=== PATIENT | male | born 1970 | race Asian ===

== ENCOUNTER → 2019-11-05 10:04 | Outpatient (CLI) | payer OTHER, SELFPAY ==
[2019-11-06 09:27] LABS: COVID19 Sendout Not Detected (Not Detect)
== END ==
PROVIDERS: Visit Provider Physician Assistant
DX: Z11.59 Encounter for screening for other viral diseases (principal)
CPT/HCPCS: 87635

== ENCOUNTER → 2019-11-21 15:17 | Outpatient (CLI) | payer OTHER, SELFPAY ==
--- NOTE | 2019-11-21 | DI.MRI.S_ITS ---
PROCEDURE: MR TMJ WO CON INDICATIONS: Jaw pain TECHNIQUE: Axial T1 spin echo, coronal and sagittal PD fast spin echo through the temporomandibular joints, in both the closed- and open-mouth positions. COMPARISON: None. FINDINGS: Image quality: Excellent. Right: Joint is normally aligned on closed and open-mouth positioning. Articular disk demonstrates normal location and morphology in closed and open-mouth positions. No joint effusion. No bony erosions or osteophytes. Left: Joint is normally aligned on closed and open-mouth positioning. Articular disk demonstrates normal location and morphology in closed and open-mouth positions. No joint effusion. No bony erosions or osteophytes. IMPRESSION: Normal examination. Dictated by: Samina Porter MD, PhD on 11/21/2019 at 16:53 Approved by: Samina Porter MD, PhD on 11/21/2019 at 16:56
== END ==
PROVIDERS: Referring Provider Family Medicine Sleep Medicine; Visit Provider Family Medicine Sleep Medicine
DX: R68.84 Jaw pain (principal)
CPT/HCPCS: 70336

== ENCOUNTER 2020-09-10 13:00 | Outpatient (RCR) | payer OTHER, SELFPAY ==
--- NOTE | 2020-09-02 10:17 | PT.OIE ---
Current Diagnoses Benign paroxysmal vertigo, right ear (09/02/20) Past Medical History (Last Updated 10/02/19 @ 18:12 by CATHY Leach) Diverticulitis large intestine Diverticulosis Excessive daytime sleepiness Obstructive sleep apnea Visit Care Team Role Provider Type Deiudonne Ascencio DO Primary Care Provider Non-Staff Specialty: Family Practice Address: [address] [place] [address], [id number] Email: George Rosa MD Attending Provider Physician Referring Provider Specialty: Ear, Nose, Throat Address: [address] [place] [address], [id number] Email: [email or web address] Physical Therapy Initial Evaluation PT-OP-A Visit Information Start: 08/19/20 12:40 Freq: Status: Active Protocol: Document 09/02/20 08:20 MB (Rec: 09/02/20 08:44 MB [id number]) Out-Patient Physical Therapy Visit Information Visit Information Visit Type Initial Evaluation Visit Note Visit Start Time 08:20 Visit Stop Time 09:00 Total Visit Minutes 40 Visit Number 1 PT-OP-B Current Condition Start: 09/02/20 08:20 Freq: Status: Active Protocol: Document 09/02/20 08:20 MB (Rec: 09/02/20 08:44 MB [id number]) Current Condition History of Current Condition Onset Date Since 2006 Current Complaints Vertigo, tinnitus History of Current Condition Pt reports that his dad had tinnitus. Pt started getting tinnitus in his mid 40s. The dizziness also started around then. He has always been sensitive to being in cars. 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 He wears a entrance guard. He does tend to grind and feels the TMJ is due stress. He wears hearing aides . He has 30% hearing left on the right and poor normal on the left. He is wearing a BiPap machine with nasal pillow. Pt states that the machine has really helped him with apnea and migraines. He can sleep for 6 hours only for his back. He has some degenerative lumbar issues and sciatica. His right leg falls asleep if he stands more than 15 minutes. He has high BP that is well-managed. Pt has trouble with walking in the dark. When he wakes up, he has reach for the wall. In 2012, pt went to get his wisdom teeth removed and was intubated and he has had some trouble swallowing since then. He has to drink a lot of water before he can swallow well. Pt reports: occ numbness and tingling right hand and leg, ear pressure in the right, hearing change right, sinus and allergy issues, TMJ right, tinnitus, trouble swallowing, right leg weakness, headaches right head and movement with most recent headache 2 days ago, chiropractor treatment 2 months ago for back and neck and pt reports worse dizziness after neck popped. Pt denies: vision changes, history of concussion and whiplash, performance of sit- ups, anemia, recent overhead lifting, B12 deficiency, eye pressure changes. Pt takes allergy medication everyday. He is taking Benadryl. He is getting cramps in his legs when sleeping. Treatment Goals Patient/Caregiver Goals To improve symptoms PT-OP-C Subjective Start: 08/19/20 12:40 Freq: Status: Active Protocol: Document 09/02/20 08:20 MB (Rec: 09/02/20 08:44 MB [id number]) OP-PT Subjective Patient Comments Patient Comments See history of current condition PT-OP-H Neuro Start: 08/19/20 12:40 Freq: Status: Active Protocol: Document 09/02/20 08:20 MB (Rec: 09/02/20 10:16 MB [id number]) Coordination Evaluation Upper Extremity Tests Left Pronation/Supination Test Normal Performance Right Pronation/Supination Test Normal Performance Comments Coordination Comments Toe tap over opposite foot equal and WNLs B B finger to PT's finger and pt 's nose normal PT-OP-J Posture/Palpation/Skin Start: 08/19/20 12:40 Freq: Status: Active Protocol: Document 09/02/20 08:20 MB (Rec: 09/02/20 10:16 MB [id number]) Posture Evaluation Comments Posture Comments Forward head and rounded shoulders, observed during interview with pt sitting today PT-OP-K Range of Motion Start: 08/19/20 12:40 Freq: Status: Active Protocol: Document 09/02/20 08:20 MB (Rec: 09/02/20 10:16 MB [id number]) Shoulder Goniometric Range of Motion Shoulder Bilateral Shoulder ROM WFL Yes Testing Position Sitting PT-OP-M Strength Start: 08/19/20 12:40 Freq: Status: Active Protocol: Document 09/02/20 08:20 MB (Rec: 09/02/20 10:16 MB [id number]) Shoulder Strength Shoulder Manual Muscle Testing Left Abduction (C5) 5 Normal External Rotation 5 Normal Internal Rotation 5 Normal Right Abduction (C5) 5 Normal External Rotation 5 Normal Internal Rotation 5 Normal Wrist Strength Wrist Manual Muscle Testing Left Extension (C6) 5 Normal Right Extension (C6) 5 Normal PT-OP-O Vestibular Start: 08/19/20 12:40 Freq: Status: Active Protocol: Document 09/02/20 08:20 MB (Rec: 09/02/20 10:16 MB [id number]) Vestibular Assessment Visual Testing Smooth Pursuits Horizontal Normal, pt reports some dizziness Smooth Pursuits Vertical As above Saccades Horizontal Normal Saccades Vertical Normal Gaze Evoked Nystagmus With Fixation Negative Spontaneous Nystagmus Negative Positional Testing [place]-Hallpike Positive Right,Upbeating,< 60 Seconds Comments Vestibular Comments PT cannot discern pupilary changes with pen light d/t darkness of irises compared to pupils (similar) PT-OP-Q Treatments Start: 08/19/20 12:40 Freq: Status: Active Protocol: Document 09/02/20 08:20 MB (Rec: 09/02/20 10:01 MB [id number]) Self-Care/Home Management Treatment Education Other Education Education and handouts about BPPV, keeping neck loose, headache self-care including cervical support under pillow and better hydration (pt is currently drinking 2 cups of coffee and 32 oz of non- caffeinated fluid), ed to stop any chiropractor appointments at this time Canalithic Repositioning BPPV Treatment Other Comments Doni-Hallpike right positive for nystagmus 40 seconds and dizziness that fits posterior canalithiasis and treated with modified Leilani. Re-tested and nystagmus and symptoms are better, yet both still present , and re-treated again. Check other canals in the future if symptoms sounding like positional vertigo persists PT-OP-T Assessment and Plan Start: 08/19/20 12:40 Freq: Status: Active Protocol: Document 09/02/20 08:20 MB (Rec: 09/02/20 10:16 MB [id number]) Physical Therapy Assessment Rehab Potential Rehabilitation Potential Fair Evaluation Complexity Number of Personal Factors/Comorbidities 1-2 Number of Body Systems Impaired 3 Clinical Presentation at Evaluation Evolving Impairments Impairments Activity Tolerance,Balance, Pain,Posture,ROM,Soft Tissue Mobility,Strength,Vestibular Other Impairments Personal factors include he sits at a desk for work and has lumbar and sciatic co- morbidities that impede standing and better posture. Body systems affected include musculoskeletal, neuromuscular , vestibular and respiratory ( sleep apnea). His clinical presentation is evolving. Other Concerns Fall Risk Yes Goals 2 Construction Laborer Goal (LTG) Pt will perform progressive HEP with I including postural, VOR, breathing, self-massage, balance and alignment exercises to improve balance, posture and dizziness by . LTG Duration 8 weeks 1 Impairment DHI 54/100 Assisted Goal (LTG) Pt will present with an improved DHI score to no more than 25/100 to reflect less dizziness and trouble with functional mobility d/t dizziness by 11/03/20. LTG Duration 8 weeks Assessment Summary Assessment Pt is a 49 y/o male presenting with long history of tinnitus , dizziness, aural fullness, headaches and hearing loss. Tinnitus, aural fullness and hearing loss are predominately in the right ear. He has never been given a dx of Meniere's and hearing changes are thought to be related to ear bud in right ear for his work in [employer] that caused tinnitus for many people with the same job. Aural fullness and positional dizziness do not typically occur with this type of problem and so PT favors unstable vestibular lesion like Meniere's to still be in clinical work-up. He does present with right posterior canalithiasis BPPV today and so PT treats this. He has a history of lumbar changes, right sciatica that does not allow him to stand as much as he would like at work , headaches, TMD and ear pain on the right and use of BiPap. Pt has cervicogenic, vestibular, stress, breathing and postural contributions to his overall presentation and PT will address these contributors during PT course. He will benefit from ongoing VOR assessment, assessment of BPPV recurrence and treatment as needed, postural, relaxation and other self-care treatment and training. Physical Therapy Plan Frequency and Duration Frequency of Treatment 2x/Week Duration of Treatment 8 weeks Plan of Care Start Date 09/02/20 Plan of Care End Date 11/03/20 Therapeutic Interventions Therapeutic Interventions Balance Training,Canalithic Repositioning,Gait Training, Home Exercise Program,Joint Mobilizations,Manual Therapy, Neuromuscular Re-education, Patient/Caregiver Education, Self-Care/Home Management,Soft Tissue Mobilization,Taping, Therapeutic Activities, Therapeutic Exercises, Vestibular Rehabilitation Modalities Cold Pack/Ice Massage,Hot Packs Next Visit Focus/Plan Next Note Type Treatment Note Next Visit Plan Reassess BPPV, consider checking VOR and/or start postural training with racquet ball massage, chin tuck and scapular retraction, pelvic realignment exercises, provide sleeping hygiene education, [place] in future treatments
--- NOTE | 2020-09-02 10:17 | PT.OPPOC ---
Physical, Occupational & Speech Therapy At [facility] Current Diagnoses Benign paroxysmal vertigo, right ear (09/02/20) Visit Care Team Role Provider Type Dieudonne Ascencio DO Primary Care Provider Non-Staff Specialty: Family Practice Address: [address] [place] [address], [id number] Email: George Rosa MD Attending Provider Physician Referring Provider Specialty: Ear, Nose, Throat Address: [address] [place] [address], [id number] Email: [email or web address] Plan Of Care PT-OP-T Assessment and Plan Start: 08/19/20 12:40 Freq: Status: Active Protocol: Document 09/02/20 08:20 MB (Rec: 09/02/20 10:16 MB [id number]) Physical Therapy Assessment Rehab Potential Rehabilitation Potential Fair Evaluation Complexity Number of Personal Factors/Comorbidities 1-2 Number of Body Systems Impaired 3 Clinical Presentation at Evaluation Evolving Impairments Impairments Activity Tolerance,Balance, Pain,Posture,ROM,Soft Tissue Mobility,Strength,Vestibular Other Impairments Personal factors include he sits at a desk for work and has lumbar and sciatic co- morbidities that impede standing and better posture. Body systems affected include musculoskeletal, neuromuscular , vestibular and respiratory ( sleep apnea). His clinical presentation is evolving. Other Concerns Fall Risk Yes Goals 2 Fpc Goal (LTG) Pt will perform progressive HEP with I including postural, VOR, breathing, self-massage, balance and alignment exercises to improve balance, posture and dizziness by . LTG Duration 8 weeks 1 Impairment DHI 54/100 Fpc Goal (LTG) Pt will present with an improved DHI score to no more than 25/100 to reflect less dizziness and trouble with functional mobility d/t dizziness by 11/03/20. LTG Duration 8 weeks Assessment Summary Assessment Pt is a 49 y/o male presenting with long history of tinnitus , dizziness, aural fullness, headaches and hearing loss. Tinnitus, aural fullness and hearing loss are predominately in the right ear. He has never been given a dx of Meniere's and hearing changes are thought to be related to ear bud in right ear for his work in [employer] that caused tinnitus for many people with the same job. Aural fullness and positional dizziness do not typically occur with this type of problem and so PT favors unstable vestibular lesion like Meniere's to still be in clinical work-up. He does present with right posterior canalithiasis BPPV today and so PT treats this. He has a history of lumbar changes, right sciatica that does not allow him to stand as much as he would like at work , headaches, TMD and ear pain on the right and use of BiPap. Pt has cervicogenic, vestibular, stress, breathing and postural contributions to his overall presentation and PT will address these contributors during PT course. He will benefit from ongoing VOR assessment, assessment of BPPV recurrence and treatment as needed, postural, relaxation and other self-care treatment and training. Physical Therapy Plan Frequency and Duration Frequency of Treatment 2x/Week Duration of Treatment 8 weeks Plan of Care Start Date 09/02/20 Plan of Care End Date 11/03/20 Therapeutic Interventions Therapeutic Interventions Balance Training,Canalithic Repositioning,Gait Training, Home Exercise Program,Joint Mobilizations,Manual Therapy, Neuromuscular Re-education, Patient/Caregiver Education, Self-Care/Home Management,Soft Tissue Mobilization,Taping, Therapeutic Activities, Therapeutic Exercises, Vestibular Rehabilitation Modalities Cold Pack/Ice Massage,Hot Packs Next Visit Focus/Plan Next Note Type Treatment Note Next Visit Plan Reassess BPPV, consider checking VOR and/or start postural training with racquet ball massage, chin tuck and scapular retraction, pelvic realignment exercises, provide sleeping hygiene education, [place] in future treatments Plan of Care Dates Plan of Care Start Date 09/02/20 Plan of Care End Date 11/03/20 Electronically Signed by: Lisbeth Christy, PT 09/02/20 1017 Please Sign and Return: I have reviewed this Plan of Care and certify that the skilled therapy services above are required to meet the patient?s needs. Physician Signature Date Printed Name and Credentials Clinical Instructor Signature Printed Name and Credentials
--- NOTE | 2020-09-07 13:45 | PT.OTN ---
Current Diagnoses Benign paroxysmal vertigo, right ear (09/07/20) Physical Therapy Treatment Note PT-OP-A Visit Information Start: 08/19/20 12:40 Freq: Status: Active Protocol: Document 09/07/20 13:02 MB (Rec: 09/07/20 13:44 MB [id number]) Out-Patient Physical Therapy Visit Information Visit Information Visit Type Treatment Note Visit Note Visit Start Time 13:02 Visit Stop Time 13:40 Total Visit Minutes 38 Visit Number 2 PT-OP-B Current Condition Start: 09/02/20 08:20 Freq: Status: Active Protocol: Document 09/02/20 08:20 MB (Rec: 09/02/20 08:44 MB [id number]) Current Condition History of Current Condition Onset Date Since 2006 Current Complaints Vertigo, tinnitus History of Current Condition Pt reports that his dad had tinnitus. Pt started getting tinnitus in his mid 40s. The dizziness also started around then. He has always been sensitive to being in cars. 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 He wears a night time babysitter. He does tend to grind and feels the TMJ is due stress. He wears hearing aides . He has 30% hearing left on the right and poor normal on the left. He is wearing a BiPap machine with nasal pillow. Pt states that the machine has really helped him with apnea and migraines. He can sleep for 6 hours only for his back. He has some degenerative lumbar issues and sciatica. His right leg falls asleep if he stands more than 15 minutes. He has high BP that is well-managed. Pt has trouble with walking in the dark. When he wakes up, he has reach for the wall. In 2012, pt went to get his wisdom teeth removed and was intubated and he has had some trouble swallowing since then. He has to drink a lot of water before he can swallow well. Pt reports: occ numbness and tingling right hand and leg, ear pressure in the right, hearing change right, sinus and allergy issues, TMJ right, tinnitus, trouble swallowing, right leg weakness, headaches right head and movement with most recent headache 2 days ago, chiropractor treatment 2 months ago for back and neck and pt reports worse dizziness after neck popped. Pt denies: vision changes, history of concussion and whiplash, performance of sit- ups, anemia, recent overhead lifting, B12 deficiency, eye pressure changes. Pt takes allergy medication everyday. He is taking Benadryl. He is getting cramps in his legs when sleeping. Treatment Goals Patient/Caregiver Goals To improve symptoms PT-OP-C Subjective Start: 08/19/20 12:40 Freq: Status: Active Protocol: Document 09/07/20 13:02 MB (Rec: 09/07/20 13:44 MB [id number]) OP-PT Subjective Patient Comments Patient Comments Pt states that his dizziness is better. He is getting some light-headedness. PT-OP-H Neuro Start: 08/19/20 12:40 Freq: Status: Active Protocol: Document 09/02/20 08:20 MB (Rec: 09/02/20 10:16 MB [id number]) Coordination Evaluation Upper Extremity Tests Left Pronation/Supination Test Normal Performance Right Pronation/Supination Test Normal Performance Comments Coordination Comments Toe tap over opposite foot equal and WNLs B B finger to PT's finger and pt 's nose normal PT-OP-J Posture/Palpation/Skin Start: 08/19/20 12:40 Freq: Status: Active Protocol: Document 09/02/20 08:20 MB (Rec: 09/02/20 10:16 MB [id number]) Posture Evaluation Comments Posture Comments Forward head and rounded shoulders, observed during interview with pt sitting today PT-OP-K Range of Motion Start: 08/19/20 12:40 Freq: Status: Active Protocol: Document 09/02/20 08:20 MB (Rec: 09/02/20 10:16 MB [id number]) Shoulder Goniometric Range of Motion Shoulder Bilateral Shoulder ROM WFL Yes Testing Position Sitting PT-OP-M Strength Start: 08/19/20 12:40 Freq: Status: Active Protocol: Document 09/02/20 08:20 MB (Rec: 09/02/20 10:16 MB [id number]) Shoulder Strength Shoulder Manual Muscle Testing Left Abduction (C5) 5 Normal External Rotation 5 Normal Internal Rotation 5 Normal Right Abduction (C5) 5 Normal External Rotation 5 Normal Internal Rotation 5 Normal Wrist Strength Wrist Manual Muscle Testing Left Extension (C6) 5 Normal Right Extension (C6) 5 Normal PT-OP-O Vestibular Start: 08/19/20 12:40 Freq: Status: Active Protocol: Document 09/02/20 08:20 MB (Rec: 09/02/20 10:16 MB [id number]) Vestibular Assessment Visual Testing Smooth Pursuits Horizontal Normal, pt reports some dizziness Smooth Pursuits Vertical As above Saccades Horizontal Normal Saccades Vertical Normal Gaze Evoked Nystagmus With Fixation Negative Spontaneous Nystagmus Negative Positional Testing Lane-Hallpike Positive Right,Upbeating,< 60 Seconds Comments Vestibular Comments PT cannot discern pupilary changes with pen light d/t darkness of irises compared to pupils (similar) PT-OP-Q Treatments Start: 08/19/20 12:40 Freq: Status: Active Protocol: Document 09/07/20 13:02 MB (Rec: 09/07/20 13:44 MB [id number]) Therapeutic Exercises Standing Exercises Racquet ball work Standing Exercise Name Intrascapular STM and MWM infraspinatus B Side bilateral Comments TrP pressure with ball, cervical rotation, shoulder ER and IR Self-Care/Home Management Treatment Education Other Education Desk ergonomics handout, use of pillow to support back and arms Canalithic Repositioning BPPV Treatment Other Comments Lane-Hallpike right is positive for nystagmus that is delayed and lasts 20 sec today, milder than last week. Re- treated x2 with modified Leilani today (PT and pt only, no tech available). Pt does have reversal of nystagmus with moving to sitting. Nystagmus in Doni-Hallpike does follow posterior canalithiasis presentation PT-OP-T Assessment and Plan Start: 08/19/20 12:40 Freq: Status: Active Protocol: Document 09/07/20 13:02 MB (Rec: 09/07/20 13:44 MB [id number]) Physical Therapy Assessment Rehab Potential Rehabilitation Potential Fair Evaluation Complexity Number of Personal Factors/Comorbidities 1-2 Number of Body Systems Impaired 3 Clinical Presentation at Evaluation Evolving Impairments Impairments Activity Tolerance,Balance, Pain,Posture,ROM,Soft Tissue Mobility,Strength,Vestibular Other Impairments Personal factors include he sits at a desk for work and has lumbar and sciatic co- morbidities that impede standing and better posture. Body systems affected include musculoskeletal, neuromuscular , vestibular and respiratory ( sleep apnea). His clinical presentation is evolving. 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 LTG Duration 8 weeks 1 Impairment DHI 54/100 Custodial Goal (LTG) Pt will present with an improved DHI score to no more than 25/100 to reflect less dizziness and trouble with functional mobility d/t dizziness by 11/03/20. LTG Duration 8 weeks Assessment Summary Assessment Orthostatic assessment sit to stand today with BP and HR in LUE: 132/91, 83; standing 132/ 94, 87. Pt con't with BPPV and though it is better, it is still there. Consider checking other canals next treatment date. Initiated postural education and exercises today and pt tolerates well. Progress to VOR, balance and postural flexibility in future treatments. Physical Therapy Plan Frequency and Duration Frequency of Treatment 2x/Week Duration of Treatment 8 weeks Plan of Care Start Date 09/02/20 Plan of Care End Date 11/03/20 Therapeutic Interventions Therapeutic Interventions Balance Training,Canalithic Repositioning,Gait Training, Home Exercise Program,Joint Mobilizations,Manual Therapy, Neuromuscular Re-education, Patient/Caregiver Education, Self-Care/Home Management,Soft Tissue Mobilization,Taping, Therapeutic Activities, Therapeutic Exercises, Vestibular Rehabilitation Modalities Cold Pack/Ice Massage,Hot Packs Next Visit Focus/Plan Next Note Type Treatment Note Next Visit Plan Consider checking other canals , VOR, chin tuck and scapular retraction, pelvic realignment exercises, provide sleeping hygiene education, [place] in future treatments
--- NOTE | 2020-09-10 13:58 | PT.OTN ---
Current Diagnoses Benign paroxysmal vertigo, right ear (09/10/20) Physical Therapy Treatment Note PT-OP-A Visit Information Start: 08/19/20 12:40 Freq: Status: Active Protocol: Document 09/10/20 13:01 MB (Rec: 09/10/20 13:57 MB [id number]) Out-Patient Physical Therapy Visit Information Visit Information Visit Type Treatment Note Visit Note Visit Start Time 13:01 Visit Stop Time 13:45 Total Visit Minutes 44 Visit Number 3 PT-OP-B Current Condition Start: 09/02/20 08:20 Freq: Status: Active Protocol: Document 09/02/20 08:20 MB (Rec: 09/02/20 08:44 MB [id number]) Current Condition History of Current Condition Onset Date Since 2006 Current Complaints Vertigo, tinnitus History of Current Condition Pt reports that his dad had tinnitus. Pt started getting tinnitus in his mid 40s. The dizziness also started around then. He has always been sensitive to being in cars. 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 He wears a entrance guard. He does tend to grind and feels the TMJ is due stress. He wears hearing aides . He has 30% hearing left on the right and poor normal on the left. He is wearing a BiPap machine with nasal pillow. Pt states that the machine has really helped him with apnea and migraines. He can sleep for 6 hours only for his back. He has some degenerative lumbar issues and sciatica. His right leg falls asleep if he stands more than 15 minutes. He has high BP that is well-managed. Pt has trouble with walking in the dark. When he wakes up, he has reach for the wall. In 2012, pt went to get his wisdom teeth removed and was intubated and he has had some trouble swallowing since then. He has to drink a lot of water before he can swallow well. Pt reports: occ numbness and tingling right hand and leg, ear pressure in the right, hearing change right, sinus and allergy issues, TMJ right, tinnitus, trouble swallowing, right leg weakness, headaches right head and movement with most recent headache 2 days ago, chiropractor treatment 2 months ago for back and neck and pt reports worse dizziness after neck popped. Pt denies: vision changes, history of concussion and whiplash, performance of sit- ups, anemia, recent overhead lifting, B12 deficiency, eye pressure changes. Pt takes allergy medication everyday. He is taking Benadryl. He is getting cramps in his legs when sleeping. Treatment Goals Patient/Caregiver Goals To improve symptoms PT-OP-C Subjective Start: 08/19/20 12:40 Freq: Status: Active Protocol: Document 09/10/20 13:01 MB (Rec: 09/10/20 13:57 MB [id number]) OP-PT Subjective Patient Comments Patient Comments Pt states that he came prepared to check all the canals for BPPV. PT-OP-H Neuro Start: 08/19/20 12:40 Freq: Status: Active Protocol: Document 09/02/20 08:20 MB (Rec: 09/02/20 10:16 MB [id number]) Coordination Evaluation Upper Extremity Tests Left Pronation/Supination Test Normal Performance Right Pronation/Supination Test Normal Performance Comments Coordination Comments Toe tap over opposite foot equal and WNLs B B finger to PT's finger and pt 's nose normal PT-OP-J Posture/Palpation/Skin Start: 08/19/20 12:40 Freq: Status: Active Protocol: Document 09/02/20 08:20 MB (Rec: 09/02/20 10:16 MB [id number]) Posture Evaluation Comments Posture Comments Forward head and rounded shoulders, observed during interview with pt sitting today PT-OP-K Range of Motion Start: 08/19/20 12:40 Freq: Status: Active Protocol: Document 09/02/20 08:20 MB (Rec: 09/02/20 10:16 MB [id number]) Shoulder Goniometric Range of Motion Shoulder Bilateral Shoulder ROM WFL Yes Testing Position Sitting PT-OP-M Strength Start: 08/19/20 12:40 Freq: Status: Active Protocol: Document 09/02/20 08:20 MB (Rec: 09/02/20 10:16 MB [id number]) Shoulder Strength Shoulder Manual Muscle Testing Left Abduction (C5) 5 Normal External Rotation 5 Normal Internal Rotation 5 Normal Right Abduction (C5) 5 Normal External Rotation 5 Normal Internal Rotation 5 Normal Wrist Strength Wrist Manual Muscle Testing Left Extension (C6) 5 Normal Right Extension (C6) 5 Normal PT-OP-O Vestibular Start: 08/19/20 12:40 Freq: Status: Active Protocol: Document 09/02/20 08:20 MB (Rec: 09/02/20 10:16 MB [id number]) Vestibular Assessment Visual Testing Smooth Pursuits Horizontal Normal, pt reports some dizziness Smooth Pursuits Vertical As above Saccades Horizontal Normal Saccades Vertical Normal Gaze Evoked Nystagmus With Fixation Negative Spontaneous Nystagmus Negative Positional Testing Houston-Hallpike Positive Right,Upbeating,< 60 Seconds Comments Vestibular Comments PT cannot discern pupilary changes with pen light d/t darkness of irises compared to pupils (similar) PT-OP-Q Treatments Start: 08/19/20 12:40 Freq: Status: Active Protocol: Document 09/10/20 13:01 MB (Rec: 09/10/20 13:57 MB [id number]) Self-Care/Home Management Treatment Education Other Education Ed pt in sitting up after repositioning maneuver--neck supported in recliner rather than lying down, keep neck loose, use of ice, trained pt in [facility] and he performs with PT training and ed Canalithic Repositioning BPPV Treatment Other Comments Roll Test left negative, right positive for mild torsional nystagmus, left Houston-Hallpike positive for mild down beat nystagmus about 1' and PT extends head more and nystagmus con't to look vestibular and not central. PT moves head to the right and nystagmus changes to upbeat to the right, vestibular appearing and not central appearing with neck in extension and head rotated and re-treated more symptomatic right ear today with a different maneuver, [facility] PT-OP-T Assessment and Plan Start: 08/19/20 12:40 Freq: Status: Active Protocol: Document 09/10/20 13:01 MB (Rec: 09/10/20 13:57 MB [id number]) Physical Therapy Assessment Rehab Potential Rehabilitation Potential Fair Evaluation Complexity Number of Personal Factors/Comorbidities 1-2 Number of Body Systems Impaired 3 Clinical Presentation at Evaluation Evolving Impairments Impairments Activity Tolerance,Balance, Pain,Posture,ROM,Soft Tissue Mobility,Strength,Vestibular Other Impairments Personal factors include he sits at a desk for work and has lumbar and sciatic co- morbidities that impede standing and better posture. Body systems affected include musculoskeletal, neuromuscular , vestibular and respiratory ( sleep apnea). His clinical presentation is evolving. Other Concerns Fall Risk Yes Goals 2 [employer] Goal (LTG) Pt will perform progressive HEP with I including postural, VOR, breathing, self-massage, balance and alignment exercises to improve balance, posture and dizziness by . LTG Duration 8 weeks 1 Impairment DHI 54/100 Detention Goal (LTG) Pt will present with an improved DHI score to no more than 25/100 to reflect less dizziness and trouble with functional mobility d/t dizziness by 11/03/20. LTG Duration 8 weeks Assessment Summary Assessment Pt presents with torsional nystagmus that is right beating with right roll test, downbeat torsional nystagmus with left Doni-Hallpike and upbeat to the right with turning head to the right. Right symptoms are stronger and so retreated right ear today and used another maneuver, [place]. Monitor his response and how he does at home. Physical Therapy Plan Frequency and Duration Frequency of Treatment 2x/Week Duration of Treatment 8 weeks Plan of Care Start Date 09/02/20 Plan of Care End Date 11/03/20 Therapeutic Interventions Therapeutic Interventions Balance Training,Canalithic Repositioning,Gait Training, Home Exercise Program,Joint Mobilizations,Manual Therapy, Neuromuscular Re-education, Patient/Caregiver Education, Self-Care/Home Management,Soft Tissue Mobilization,Taping, Therapeutic Activities, Therapeutic Exercises, Vestibular Rehabilitation Modalities Cold Pack/Ice Massage,Hot Packs Next Visit Focus/Plan Next Note Type Treatment Note Next Visit Plan Consider checking VOR, chin tuck and scapular retraction, pelvic realignment exercises, provide sleeping hygiene education, Bharat in future treatments, manual work for neck
--- NOTE | 2020-09-16 08:53 | PT.OPDS ---
Current Diagnoses Benign paroxysmal vertigo, right ear (09/10/20) Visit Care Team Role Provider Type Dieudonne Ascencio DO Primary Care Provider Non-Staff Specialty: Family Practice Address: [address] [place] [address], [address] Email: George Rosa MD Attending Provider Physician Referring Provider Specialty: Ear, Nose, Throat Address: [address] [place] [address], [address] Email: [email or web address] Visit Number Visit Number 3 Discharge Summary PT-OP-B Current Condition Start: 09/02/20 08:20 Freq: Status: Active Protocol: Document 09/02/20 08:20 MB (Rec: 09/02/20 08:44 MB [id number]) Current Condition History of Current Condition Onset Date Since 2006 Current Complaints Vertigo, tinnitus History of Current Condition Pt reports that his dad had tinnitus. Pt started getting tinnitus in his mid 40s. The dizziness also started around then. He has always been sensitive to being in cars. 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 He wears a night filler. He does tend to grind and feels the TMJ is due stress. He wears hearing aides . He has 30% hearing left on the right and poor normal on the left. He is wearing a BiPap machine with nasal pillow. Pt states that the machine has really helped him with apnea and migraines. He can sleep for 6 hours only for his back. He has some degenerative lumbar issues and sciatica. His right leg falls asleep if he stands more than 15 minutes. He has high BP that is well-managed. Pt has trouble with walking in the dark. When he wakes up, he has reach for the wall. In 2012, pt went to get his wisdom teeth removed and was intubated and he has had some trouble swallowing since then. He has to drink a lot of water before he can swallow well. Pt reports: occ numbness and tingling right hand and leg, ear pressure in the right, hearing change right, sinus and allergy issues, TMJ right, tinnitus, trouble swallowing, right leg weakness, headaches right head and movement with most recent headache 2 days ago, chiropractor treatment 2 months ago for back and neck and pt reports worse dizziness after neck popped. Pt denies: vision changes, history of concussion and whiplash, performance of sit- ups, anemia, recent overhead lifting, B12 deficiency, eye pressure changes. Pt takes allergy medication everyday. He is taking Benadryl. He is getting cramps in his legs when sleeping. Treatment Goals Patient/Caregiver Goals To improve symptoms PT-OP-C Subjective Start: 08/19/20 12:40 Freq: Status: Active Protocol: Document 09/10/20 13:01 MB (Rec: 09/10/20 13:57 MB [id number]) OP-PT Subjective Patient Comments Patient Comments Pt states that he came prepared to check all the canals for BPPV. PT-OP-H Neuro Start: 08/19/20 12:40 Freq: Status: Active Protocol: Document 09/02/20 08:20 MB (Rec: 09/02/20 10:16 MB [id number]) Coordination Evaluation Upper Extremity Tests Left Pronation/Supination Test Normal Performance Right Pronation/Supination Test Normal Performance Comments Coordination Comments Toe tap over opposite foot equal and WNLs B B finger to PT's finger and pt 's nose normal PT-OP-J Posture/Palpation/Skin Start: 08/19/20 12:40 Freq: Status: Active Protocol: Document 09/02/20 08:20 MB (Rec: 09/02/20 10:16 MB [id number]) Posture Evaluation Comments Posture Comments Forward head and rounded shoulders, observed during interview with pt sitting today PT-OP-K Range of Motion Start: 08/19/20 12:40 Freq: Status: Active Protocol: Document 09/02/20 08:20 MB (Rec: 09/02/20 10:16 MB [id number]) Shoulder Goniometric Range of Motion Shoulder Bilateral Shoulder ROM WFL Yes Testing Position Sitting PT-OP-M Strength Start: 08/19/20 12:40 Freq: Status: Active Protocol: Document 09/02/20 08:20 MB (Rec: 09/02/20 10:16 MB [id number]) Shoulder Strength Shoulder Manual Muscle Testing Left Abduction (C5) 5 Normal External Rotation 5 Normal Internal Rotation 5 Normal Right Abduction (C5) 5 Normal External Rotation 5 Normal Internal Rotation 5 Normal Wrist Strength Wrist Manual Muscle Testing Left Extension (C6) 5 Normal Right Extension (C6) 5 Normal PT-OP-O Vestibular Start: 08/19/20 12:40 Freq: Status: Active Protocol: Document 09/02/20 08:20 MB (Rec: 09/02/20 10:16 MB [id number]) Vestibular Assessment Visual Testing Smooth Pursuits Horizontal Normal, pt reports some dizziness Smooth Pursuits Vertical As above Saccades Horizontal Normal Saccades Vertical Normal Gaze Evoked Nystagmus With Fixation Negative Spontaneous Nystagmus Negative Positional Testing Florien-Hallpike Positive Right,Upbeating,< 60 Seconds Comments Vestibular Comments PT cannot discern pupilary changes with pen light d/t darkness of irises compared to pupils (similar) PT-OP-T Assessment and Plan Start: 08/19/20 12:40 Freq: Status: Active Protocol: Document 09/16/20 08:52 MB (Rec: 09/16/20 08:53 MB [id number]) Physical Therapy Plan Discharge Physical Therapy Discharge Reasons Change in Medical Status Discharge Comments Pt calls to state that he had a positive finding on his brain MRI and PT reviews the report and sees finding of 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 Recommend neurosurgical consultation. Will d/c PT.
== END 2020-09-16 12:51 | disposition home or self-care (01) ==
LOC: PHYS 13:00
PROVIDERS: PCP Family Medicine; Referring Provider Otolaryngology; Visit Provider Otolaryngology
DX: H81.11 Benign paroxysmal vertigo, right ear (principal)
CPT/HCPCS: 95992; 97110; 97162; 97535

== ENCOUNTER → 2020-09-14 09:35 | Outpatient (CLI) | payer OTHER, SELFPAY ==
--- NOTE | 2020-09-14 | DI.MRI.S_ITS ---
PROCEDURE: MR BRAIN (IAC) WWO CON INDICATIONS: Tinnitus, right ear TECHNIQUE: Noncontrast sagittal T1 spin echo, axial FLAIR, axial gradient echo, axial diffusion and ADC through the brain. Axial thin-slice 3D CISS, coronal TruFISP, axial T1 spin echo with fat saturation through the internal auditory canals. After the administration of contrast, thin slice axial and coronal T1 spin echo with fat saturation through the internal auditory canals, and axial T1 spin echo with fat saturation through the brain. COMPARISON: None. FINDINGS: Image quality: Excellent. Cerebellopontine angles: No cerebellopontine angle masses. Inner ear structures appear normally formed. No suspicious enhancement in the internal auditory canal or along the course of the 7th cranial nerve. CSF spaces: Ventricles are normal in size and shape. No extra-axial fluid collections. Basal cisterns are patent. Brain: No intracranial bleeds or mass effects. There is mild, diffuse cerebral volume loss. There are minimal periventricular and subcortical white matter chronic microvascular ischemic changes. Neal-white matter interface is intact. No abnormal intracranial enhancement. Diffusion weighted images demonstrate no acute ischemic insults. Brainstem appears normal. Normal intravascular flow voids are present. 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 Cerebral aneurysm appears to communicate with lateral right temporal superficial cortical vein suggesting arterial-venous fistula. Dural sinuses demonstrate normal postcontrast enhancement. Skull and face: Calvarial marrow signal is normal. Orbits appear normal. Sinuses: Sinuses and mastoids are clear. IMPRESSION: 1. No evidence of vestibular schwannoma. 2. No abnormal intracranial mass or mass effect. 3. No suspicious postcontrast enhancement. 4. 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 Recommend neurosurgical consultation. Findings telephoned to Dr. George Rosa on September 14, 2020 at 1:37 p.m.. Dictated by: Samina Porter MD, PhD on 09/14/2020 at 13:25 Approved by: Samina Porter MD, PhD on 09/14/2020 at 13:49
== END ==
PROVIDERS: PCP Family Medicine; Referring Provider Otolaryngology; Visit Provider Otolaryngology
DX: H93.11 Tinnitus, right ear (principal); I67.1 Cerebral aneurysm, nonruptured
CPT/HCPCS: 70553

== ENCOUNTER → 2020-12-20 13:05 | Outpatient (CLI) | payer OTHER, SELFPAY ==
--- NOTE | 2020-12-20 | DI.RAD.S_ITS ---
PROCEDURE: FL BARIUM SWALLOW W SPEECH INDICATIONS: Dysphagia, pharyngeal phase COMPARISON: None. TECHNIQUE: Examination was conducted in conjunction with speech pathology per standard protocol. In the lateral projection, filming was performed of the patient swallowing. AP projection filming may also be performed with patient swallowing. COMPARISON: FINDINGS: Function: The oral preparatory phase appears normal, with proper containment. The subsequent oral propulsive phase, pharyngeal phase, and esophageal phase of swallowing also appear normal with all proffered substances. No laryngotracheal penetration or aspiration. No pathologic vallecular pooling. Morphology: No cricopharyngeal bar is identified. No cervical esophageal webs. No Zenker's diverticulum. No strictures. IMPRESSION: Please see speech pathology report full details. Dictated by: Kong Kaiser M.D. on 12/21/2020 at 17:30 Approved by: Kong Kaiser M.D. on 12/21/2020 at 17:30
--- NOTE | 2020-12-21 16:57 | ST.SWALLOW ---
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 Rosa, ENT Reason for Referral dysphagia Setting Setting Outpatient Care Patient Information Identification Type Name,Date of Patient History Pt was seen for a Modified Barium Swallow Study (MBSS) secondary to difficulty with swallowing. His past medical history includes sleep apnea (with C-pap). He reported that , in 2016/2016, the doctors had difficulty intubating him. The surgeon reportedly told the pt that there was difficulty with intubation and that there was a lot of bleeding. The pt reported that he then threw up a large amount of blood. Pt describes swallowing as sticking in my throat, pointing to the sternal area. According to the pt, two weeks ago he was eating chicken and sensed the food getting stuck. He tried to drink water to flush the food but the water just came out of his mouth and could not be swallowed. He felt some difficulty with breathing but not to the point he couldn't breathe at all. Eventually the chicken and water was expelled from this throat. Currently he reports chewing foods very carefully, avoiding foods like breads, crackers, rice, etc. and drinking a lot of water when eating. The pt also noted that since his surgery, he has noticed his voice is rough and 'not the same. Subjective Observations Pt was seated in the fluoroscopy chair. Directions and procedures were described for the pt, who indicated he understood and agreed to proceed. Patient Positioning Position View Lat-A/P Imaging Lateral View Textures Administered Trials Presented Thin Liquid via Spoon,Thin Liquid via Cup,Pudding Thick Liquid via Spoon,Regular Textures Oral Phase Source: MBSIMP (TM) (C) Bolus Specific Scoring Grid Lip Closure No Impairment (WNL) Tongue Control During Bolus Hold No Impairment (WNL) Bolus Prep/Mastication No Impairment (WNL) Bolus Transport/Lingual Motion No Impairment (WNL) A/P Lingual Propulsion Delay No Oral Residue WFL Nasal Regurgitation No Additional Oral Phase Observations OME was WNL for strength and ROM. Dentition was natural in good hygiene and adequate for mastication. DKS was normal. Speech was 100% intelligible. Pharyngeal Phase Source: MBSIMP (TM) (C) Bolus Specific Scoring Grid Delayed Initiation of Pharyngeal Swallow No Soft Palate Elevation No Impairment (WNL) Tongue Base Strength/Range of Motion No Impairment (WNL) Residue Along the Tongue Base trace Laryngeal Elevation WFL Anterior Hyoid Movement WFL Epiglottic Range of Motion No Impairment (WNL) Vallecular Residue trace to minimal Clearance of Vallecular Residue No Impairment (WNL) Laryngeal Vestibular Closure No Impairment (WNL) Pharyngeal Stripping Wave No Impairment (WNL) Posterior Pharyngeal Wall Residue No Upper Esophageal Sphincter Opening No Impairment (WNL) Residue in the Pyriform Sinuses trace to minimal Clearance of Residue in the Pyriform No Impairment (WNL) Sinuses Esophageal Clearance Upright Position No Impairment (WNL) Pharyngoesophageal Backflow Observed No Additional Pharyngeal Phase Observations pharyngeal phase was observed to be WNL A/P View Textures Administered Trials Presented Thin Liquid via Spoon,Barium Tablet A/P View Observations Pharyngeal Contraction Severe Impairment Esophageal Function Slowed Clearing,Stasis, Narrowing Esophageal Clearance Upright Position Moderate Impairment Additional Observations With the AP view, the esophageal emptying with liquid and tablet appeared to be WFL. However, there appeared to be a small diverticulum located near the mid chest/sternal area. Different angle of the esophagus were obtained at the point of the diverticulum. A significant narrowing of the esophagus was noted at that point. This narrowing could restrict solid food boluses from clearing that narrow area , especially if the pt was eating rapidly and/or without being mindful of swallowing. It would explain the pt's difficulty clearing the bolus and the water returning to the oral cavity. This narrowing may be a result of the difficult intubation and explain the amount of blood reported by the pt. A referral to GI is recommended for evaluation. Clinical Impressions Dysphagia Type esophageal Patient Appropriate for Therapy No Recommendations Treatment Plan Recommended Referrals GI Consult
== END ==
PROVIDERS: PCP Family Medicine; Referring Provider Otolaryngology; Visit Provider Otolaryngology
DX: R13.13 Dysphagia, pharyngeal phase (principal)
CPT/HCPCS: 74230; 92526; 92611

== ENCOUNTER → 2021-04-08 13:32 | Outpatient (CLI) | payer OTHER, SELFPAY ==
[2021-04-08 15:34] LABS: COVID19 -Nasal RAPID Negative (Negative)
== END ==
PROVIDERS: PCP Family Medicine; Visit Provider Family Medicine Sleep Medicine
DX: Z20.822 Contact with and (suspected) exposure to COVID-19 (principal)
CPT/HCPCS: 87635; C9803

== ENCOUNTER 2021-04-11 13:42 | Day surgery (SDC) | payer OTHER, SELFPAY ==
--- NOTE | 2021-04-11 | PATH_ITS ---
[facility] Accession Number: [id number] . 01 Material submitted: . PART A: stomach - ANTRUM PART B: esophagus - ESOPHAGUS . 02 Diagnosis: A. Antrum: Portions of gastric antral mucosa with mild chronic inflammation. Negative for Helicobacter organisms by immunohistochemistry. Negative for intestinal metaplasia. Negative for dysplasia or malignancy. . B. Esophagus: Squamous mucosa with no diagnostic abnormality. Intraepithelial eosinophils are not increased. Negative for dysplasia and malignancy. MRV 04/14/2021 1235 Local . 02 Electronically signed: . Fide Stauffer MD, Pathologist NPI- [id number] . 01 Gross description: . Part A: ANTRUM: Received in formalin are 2 fragment(s) of farah, soft tissue measuring 0.3 x 0.2 x 0.1 cm to 0.1 x 0.1 x 0.1 cm submitted entirely in 1 cassette(s) Part B: ESOPHAGUS: Received in formalin is 3 fragment(s) of farah, soft tissue measuring 0.3 x 0.2 x 0.1 cm to 0.1 x 0.1 x 0.1 cm submitted entirely in 1 cassette(s) /CPE 04/12/2021 0926 Local . 02 Microscopic: . A. An immunohistochemical stain is performed to evaluate for Helicobacter organisms and is negative. The control stain showed appropriate reactivity. . * This test was developed and its performance characteristics determined by [employer]. It has not been cleared or approved by the U.S. Food and Drug Administration. The FDA has determined that such clearance or approval is not necessary. This test is used for clinical purposes. It should not be regarded as investigational or for research. . 02 Pathologist provided ICD-10: R13.14 . 02 CPT . 247935, 996702, [id number] Performed at: 01 [facility] [address] [place] [address], [place], [place] [id number] MD Jonathan Anderson MD Phone: [phone] Performed at: 02 [facility] [address] [place], [place] [id number] MD Gladis Thrasher MD Phone: [phone]
[2021-04-11] MEDS: SODIUM CHLORIDE 0.9% 1,000 ML 84 ML IV (14:01)
[2021-04-11 14:05] VITALS: BP 140/82; PULSE 84; RESP 16; TEMP 36.2; O2SAT 99; BMI 26.9
--- NOTE | 2021-04-11 15:12 | P.HP_ITS ---
History of Present Illness History of Present Illness Date Patient Seen: 04/11/21 Time Patient Seen: 15:12 Chief complaint: SDC Narrative: I reviewed the recent note by Dr. Venegas. No significant changes. 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) Obstructive sleep apnea Family & Social History Social History: household members spouse Tobacco & Substance use: Smoking Status Former smoker alcohol intake never Substance Use Type does not use Meds Home Medications and Allergies Home Medications Medication Instructions Recorded Confirmed Type diphenhydramine HCl 25 mg tablet 25 mg PO BEDTIME 04/06/21 04/11/21 History (Benadryl Allergy) losartan 50 mg tablet 50 mg PO DAILY 04/06/21 04/11/21 History zolpidem 5 mg tablet (Ambien) 5 mg PO BEDTIME PRN #14 tab 04/06/21 04/11/21 Rx Allergies Allergy/AdvReac Type Severity Reaction Status Date / Time Sulfa (Sulfonamide Allergy Verified 04/11/21 13:56 Antibiotics) Review of Systems Review of Systems ROS: Yes All systems reviewed with the patient and are negative except as otherwise documented Exam Vital Signs (past 8 hours): - 04/11/21 14:05 Temperature 97.2 F L Pulse Rate 84 Respiratory Rate 16 Blood Pressure 140/82 Pulse Oximetry 99 Oxygen Delivery Method Room Air Const General: cooperative and comfortable Orientation: alert HENMT Head: normocephalic Ears: external ears normal Nose: external nose normal Face and sinus: normal facial exam Eyes General: appearance normal, both eyes and all related structures Neck Neck: normal visual inspection Chest Chest: normal inspection of the chest Resp Effort & Inspection: normal respiratory effort Cardio Rate: regular rate GI Inspection: normal to inspection Skin General: no rashes or lesions noted and No jaundice Neuro General: patient alert and moves all extremities Cognition: normal cognition Speech: speech normal Extrem General: no pedal edema Psych Appearance: grossly normal Assessment & Plan Assessment & Plan narrative: 50-year-old male with approximately 6 years of intermittent dysphagia to solids. EGD is pursued today. We discussed the role of an empiric dilatation should everything appeared entirely normal. Time Spent With Patient Critical Care time: I spent a total of [] minutes of critical care time on this patient's care today; this time is exclusive of procedural time.
--- NOTE | 2021-04-11 15:14 | PM.PREOP ---
Pre-operative Note COVID-19 COVID-19 status: Negative Result date/Date tested (Pos, Neg/Pending): 04/08/21 Criteria for continued procedure: Possibility delay results in more complex future surgery or treatment Interval Note History & Physical reviewed/Exam performed by Physician: Yes Changes to H&P: No ASA Class (for procedural sedation): II
--- NOTE | 2021-04-11 16:09 | P.OP.EGD_ITS ---
Operative Date/Time/Diagnoses Date of procedure: 04/11/21 Time of procedure: 16:10 Pre-op diagnosis: Dysphagia Post-op diagnosis: same Procedure & Clinicians Study performed: EGD with biopsies Same procedure as scheduled: Yes Indications: Dysphagia Surgeon: Silver Gutierrez Procedure Notes SCOAP/Timeout: Done Procedure in detail: After the risks and benefits were explained, written and verbal informed consent was obtained. The patient was brought into the procedure room and placed into the left lateral decubitus position. Conscious sedation medication was applied as per nursing documentation. The scope was introduced into the mouth through the bite block and advanced under direct visualization to the 2nd portion of the duodenum. The scope was slowly withdrawn carefully examining the mucosa for any defects or lesions. Retroflexed views were accomplished in the stomach. The stomach was decompressed, the scope was then removed from the patient who tolerated the procedure well. Sedation minutes: 11 Complications: none Impression: 1. Duodenum: This appeared visually normal from the bulb through to the 2nd p ortion. 2. Stomach: Patient had some subtle erosive features in the antrum and a mild gastropathy. Biopsies were taken from the eroded areas for exclusion of Helicobacter or any other underlying histopathology. Otherwise retroflexed views of the LES were unremarkable. 3. Esophagus: The squamocolumnar junction correlated quite nicely with the top of the gastric folds. The GEJ was at approximately 38 cm from the incisors. The patient had an obviously tense and somewhat spastic lower esophageal sphincter mechanism. Each time I was in the esophagus advancing to the stomach I was required to pause to allow this region to relax. I did not appreciate any evidence of esophagitis. No Schatzki ring. No stenoses. I took mid esophageal biopsies for exclusion of eosinophilic infiltration but did not see visual suggestion of this entity. Endoscopic diagnosis 1. Tense lower esophageal sphincter mechanism 2. Erosive gastropathy Post-procedure Plan for aftercare: 1. Await histopathology 2. If histopathology of the esophagus is confirmed normal, I would recommend esophageal manometry as the next step here. Disposition: PACU
[2021-04-11 16:13] VITALS: BP 115/79; PULSE 74; RESP 14; TEMP 36.3; O2SAT 100
[2021-04-11 16:18] VITALS: BP 115/78; PULSE 73; RESP 14; O2SAT 100
[2021-04-11 16:23] VITALS: BP 116/73; PULSE 75; RESP 18; O2SAT 100
[2021-04-11 16:28] VITALS: BP 130/80; PULSE 70; RESP 18; O2SAT 100
[2021-04-11 16:37] VITALS: BP 127/87; PULSE 75; RESP 15; TEMP 36.1; O2SAT 100
--- NOTE | 2021-04-11 16:56 | SUR.PHASEII ---
dr Gutierrez went to speak with patient re left eye irritation then discharged.
== END 2021-04-11 16:55 | disposition home or self-care (01) ==
PROVIDERS: PCP Family Medicine; Referring Provider Internal Medicine Gastroenterology; Visit Provider Internal Medicine Gastroenterology
PROC: 0DJ08ZZ Inspection of Upper Intestinal Tract, Via Natural or Artificial Opening Endoscopic (ICD-10-PCS; CPT 43235; principal; 2021-04-11 15:00)
DX: K29.50 Unspecified chronic gastritis without bleeding (principal); K31.9 Disease of stomach and duodenum, unspecified
CPT/HCPCS: 43239; J2704